=== PATIENT | male | born 1985 | race Caucasian/White ===

== ENCOUNTER → 2016-09-15 | Outpatient (CLI) | payer OTHER ==
--- NOTE | 2016-09-15 14:55 | DI ---
Indication: ITS.REASON: DIAGNOSTIC TESTING PROCEDURE: THORACIC SPINE 2 VIEW: Encounter: Initial Comparison: None Findings: Three views of the thoracic spine demonstrates a mild sweeping curvature of the thoracic spine, convexity in the lower dorsal region directed towards the patient's right in the coronal plane. Mild loss of vertebral body height in regards to the lower endplate of what appears to be T11. Chronicity is indeterminate without reference studies. Mild degenerative endplate changes noted. Pedicles and costovertebral junctions appear satisfactory. Cortical endplates relatively well-preserved. The visualized ribs appear satisfactory and the lungs appear grossly clear. Impression: 1. Curvature of the thoracic spine as described above which could be positional or related to the scoliosis. 2. There does appear to be a mild compression deformity associated with the lower endplate of T11. .
== END ==
LOC: IMA 13:44
DX: Z02.9 Encounter for administrative examinations, unspecified (principal); R93.7 Abnormal findings on diagnostic imaging of other parts of musculoskeletal system